=== PATIENT | male | born 1965 | race Caucasian/White ===

== ENCOUNTER → 2020-06-22 | Outpatient (CLI) | payer OTHER ==
[~2020-06-22] VITALS: Ht 175.3 cm; Wt 108.9 kg
[~2020-06-22] MED LIST: OMEPRAZOLE 20 M20 M1 PO; PRINIVIL20 MG PO; TRAMADOL 50 MG50 MG PO; VENTOLIN HFA 1818 GM INH
[2020-06-22 11:15] VITALS: BP 152/87
--- NOTE | 2020-06-23 07:11 | EKG ---
[address] [address] ELECTROCARDIOGRAM REPORT Name: ANISHA VIERA Room #: 150-1 [facility]#: [id number] Admission: 06/22/20 Attend Phys: Vicente Mckeon MD Discharge: Date of : 63 Report #: [id number] [facility] Test Date: 2020-06-22 Test Time: 11:22:06 Pat Name: ANISHA SUZETTEARLENE Department: Room: [facility] Gender: M Senior Business Development Analyst: AILYN : 1965 Requested By: Vicente Mckeon Order Number: [id number] MD: Umair Weiss Measurements Intervals [place] Rate: 95 P: 56 MA: 173 QRS: 86 QRSD: 80 T: 29 QT: 343 QTc: 431 Interpretive Statements Sinus rhythm Baseline wander in lead(s) II,V4,V6 No previous ECG available for comparison Electronically Signed On 06-23-2020 7:10:54 LAN ADMINISTRATOR by Umair Weiss [email or web address] <ELECTRONICALLY SIGNED> By: Umair Weiss MD, [facility] 06/23/20 0710 D: [id number] Umair Weiss MD, FACC /EPI
[2020-06-24 11:38] LABS: GLYCOHEMOGLOBIN (HGB A1C) 10.9
== END | disposition home or self-care (01) ==
LOC: OR 08:46 → PAC 09:00 → OR 09:24 → EDSTATUS 09:27 → OR 09:53 → PAC 10:18 → OR 10:18 → TBA 10:18 → OR 10:34 → TBA 10:34 → PAC 10:34 → OR 10:42
PROVIDERS: ATTEND Orthopaedic Surgery
DX: M16.12 Unilateral primary osteoarthritis, left hip (principal); Z53.8 Procedure and treatment not carried out for other reasons; M25.552 Pain in left hip; I10 Essential (primary) hypertension; E11.9 Type 2 diabetes mellitus without complications; K21.9 Gastro-esophageal reflux disease without esophagitis; G47.30 Sleep apnea, unspecified; Z98.890 Other specified postprocedural states; Z79.899 Other long term (current) drug therapy; Z87.891 Personal history of nicotine dependence